=== PATIENT | female | born 1985 | race Caucasian/White ===

== ENCOUNTER 2019-04-17 04:56 | Inpatient (IN) | payer MEDICAID ==
[2019-04-16 11:22] LABS: APPEARANCE,URINE CLEAR; BILIRUBIN,URINE NEGATIVE (NEGATIVE); COLOR,URINE STRAW; GLUCOSE, URINE NEGATIVE (NEGATIVE); KETONES,URINE NEGATIVE (NEGATIVE); LEUKOCYTE ESTERASE,URINE NEGATIVE (NEGATIVE); NITRITE,URINE NEGATIVE (NEGATIVE); PROTEIN,URINE NEGATIVE (NEGATIVE); URINE SPECIFIC GRAVITY 1.002; UROBILINOGEN,URINE NEGATIVE mg/dL (<2.0)
[2019-04-16 11:27] LABS: URINE AMPHETAMINES SCREEN NEGATIVE; URINE BARBITURATES SCREEN NEGATIVE; URINE BENZODIAZEPINES SCREEN NEGATIVE; URINE COCAINE SCREEN NEGATIVE; URINE MARIJUANA (THC) SCREEN NEGATIVE; URINE METHADONE SCREEN NEGATIVE; URINE PHENCYCLIDINE SCREEN NEGATIVE
[2019-04-16 11:46] LABS: ABSOLUTE BASOPHILS # (AUTO) 0.1 10^3/uL (0.0-0.2); ABSOLUTE LYMPHOCYTES (AUTO) 1.7 10^3/uL (0.5-4.7); ABSOLUTE MONOCYTES (AUTO) 0.5 10^3/uL (0.1-1.4); ABSOLUTE NEUT (AUTO) 9.5 10^3/uL (1.7-8.2); BASOPHILS % (AUTO) 0.6 % (0-2); EOSINOPHILS % (AUTO) 0.4 % (0-6); HEMATOCRIT 35.4 % (36.0-47.0); HEMOGLOBIN 11.9 g/dL (12.0-15.5); LYMPHOCYTES % (AUTO) 14.3 % (13-45); MEAN CORPUSCULAR HEMOGLOBIN 30.1 pg (27.0-33.4); MEAN CORPUSCULAR HGB CONC 33.6 g/dL (32.0-36.0); MEAN CORPUSCULAR VOLUME 90 fl (80-97); MONOCYTES % (AUTO) 3.9 % (3-13); PLATELET COUNT 247 10^3/uL (150-450); RED BLOOD COUNT 3.94 10^6/uL (3.72-5.28); RED CELL DISTRIBUTION WIDTH 13.2 % (11.5-14.0); SEGMENTED NEUTROPHILS % (AUTO) 80.8 % (42-78); TOTAL CELLS COUNTED % (AUTO) 100 %; WHITE BLOOD COUNT 11.8 10^3/uL (4.0-10.5)
[2019-04-17] MEDS ORDERED: LIDOCAINE 0.5% INJ-PF (5 MG/ML) 50 ML SDV SUBCUT PRN (05:00)
[2019-04-17] MEDS ORDERED: RINGERS SOLUTION,LACTATED 1,000 ML IV PRN (05:00)
[2019-04-17] MEDS ORDERED: CEFAZOLIN 2 GM/D5W RTU 2 GM/50 ML RTUPB IV PRN (05:08)
[2019-04-17] MEDS: LACTATED RINGERS 1000 ML IV PRN ×2 (06:22→13:58)
[2019-04-17] MEDS ORDERED: CEFAZOLIN 1 GM/D5W RTU 2 GM/100 ML RTUPB IV ONE (06:29)
[2019-04-17] MEDS ORDERED: OXYTOCIN 10 UNIT/ML VIAL ONE (07:26)
[2019-04-17] MEDS ORDERED: OXYTOCIN/NORMAL SALINE 20 UNIT/1,000 ML RTUINJ ONE (07:27)
[2019-04-17] MEDS ORDERED: PROPOFOL INJ 200 MG/20 ML VIAL IV ONE (07:27)
[2019-04-17] MEDS ORDERED: FENTANYL CITRATE INJ/PF 100 MCG/2 ML AMPUL ONE ×2 (07:27→11:03)
[2019-04-17] MEDS ORDERED: MIDAZOLAM 2 MG/2 ML INJ ONE (07:27)
[2019-04-17] MEDS ORDERED: CITRIC ACID/SODIUM CITRATE ORAL SOLN 15 ML UDCUP ONE (07:27)
[2019-04-17] MEDS ORDERED: EPHEDRINE SULFATE INJ 50 MG/1 ML AMPULE ONE (07:27)
[2019-04-17] MEDS ORDERED: DIPHENHYDRAMINE HCL 50 MG/ML VIAL IV PRN (08:38)
[2019-04-17] MEDS ORDERED: MEPERIDINE HCL/PF INJ 25 MG/1 ML DISP.SYRIN IV PRN (08:38)
[2019-04-17] MEDS ORDERED: FENTANYL CITRATE INJ/PF 100 MCG/2 ML AMPUL IV PRN ×3 (08:38)
[2019-04-17] MEDS ORDERED: PROMETHAZINE HCL INJ 25 MG/1 ML VIAL IV PRN ×2 (08:38→10:08)
[2019-04-17] MEDS ORDERED: HYDROMORPHONE HCL INJ/PF 2 MG/ML AMPULE IV PRN (08:40)
[2019-04-17] MEDS ORDERED: ACETAMINOPHEN 325 MG TABLET ONE (09:45)
[2019-04-17] MEDS ORDERED: HYDROMORPHONE HCL INJ/PF 2 MG/ML AMPULE ONE ×2 (09:46→10:30)
[2019-04-17] MEDS ORDERED: NORMAL SALINE 1000 ML 1,000 ML IV PRN (10:08)
[2019-04-17] MEDS ORDERED: OXYTOCIN/NORMAL SALINE 20 UNIT/1,000 ML RTUINJ IV PRN (10:08)
[2019-04-17] MEDS ORDERED: ACETAMINOPHEN 325 MG TABLET PO PRN (10:08)
[2019-04-17] MEDS ORDERED: MEASLES,MUMPS&RUBELLA VACC/PF 0.5 ML VIAL SUBCUT PRN (10:08)
[2019-04-17] MEDS ORDERED: DIPH/PERTUSS(ACELL)/TETANUS VAC/PF 0.5 ML SYR (>=10YO) IM PRN (10:08)
[2019-04-17] MEDS ORDERED: OXYCODONE-ACETAMINOPHEN 5-325 MG TABLET PO PRN (10:08)
[2019-04-17] MEDS ORDERED: ACETAMINOPHEN 1,000 MG/100 ML RTUPB IV PRN (10:08)
--- NOTE | 2019-04-17 10:11 | Brief Operative Note ---
BRIEF OPERATIVE REPORT DATE OF SURGERY: 04/17/19 TIME OF SURGERY: 08:00 PREOPERATIVE DIAGNOSIS: , 39+0ega, H/o section due to pelvic fractures, Undesired Fertility. POSTOPERATIVE DIAGNOSIS: NICHOLAS - delivered SURGEON: TANO VINCENT FINDINGS: normal tubes/ovaries, normal uterus, VFI delivered at 0822, weight 4040g (8#14oz), Apgars 8/8. [place] BTL. IVF 2000ml, UOP 150ml COMPLICATIONS: none ESTIMATED BLOOD LOSS: 1049 TISSUE REMOVED OR ALTERED: Placenta and cord not sent to pathology, Bilateral portions of fallopian tubes sent TECHNICAL PROCEDURE: Repeat Section
[2019-04-17] MEDS ORDERED: METOCLOPRAMIDE HCL INJ/PF 10 MG/2 ML SDV ONE (10:17)
[2019-04-17] MEDS ORDERED: KETOROLAC TROMETHAMINE 60 MG/2 ML SDV ONE (10:17)
[2019-04-17] MEDS ORDERED: PHENYLEPHRINE HCL INJ/PF 10 MG/1 ML SDV ONE (10:17)
[2019-04-17] MEDS ORDERED: ONDANSETRON HCL INJ/PF 4 MG/2 ML SDV ONE (10:17)
[2019-04-17] MEDS ORDERED: ACETAMINOPHEN 1,000 MG/100 ML RTUPB IV ONE (10:31)
[2019-04-17] MEDS: HYDROMORPHONE HCL INJ/PF 2 MG/ML AMPULE IV PRN ×3 (10:35→19:56)
[2019-04-17] MEDS ORDERED: PROMETHAZINE HCL INJ 25 MG/1 ML VIAL ONE (11:33)
[2019-04-17] MEDS: IBUPROFEN 800 MG TABLET PO SCH ×3 (15:06→23:57)
[2019-04-17] MEDS: OXYCODONE-ACETAMINOPHEN 5-325 MG TABLET PO PRN (16:39)
[2019-04-17] MEDS: DOCUSATE SODIUM 100 MG CAPSULE PO SCH (17:20)
--- NOTE | 2019-04-17 22:44 | PDOC DELIVERY SUMMARY ---
Delivery Summary - Maternal Hx : II Hx Para: I Hx # Term Pregnancies: 1 Hx # Pregnancies: 0 Hx Total # of Abortions (Sponateous & Elective): 0 Number of Living Children: 1 SCARLETT: 04/24/19 Gestational Age: 39 Risk Factors: Previous Ruptured Membranes: AROM Time of Rupture: 08:21 Fluids: Clear - Delivery Labor: Not In Labor Presentation: Vertex Heart Rate Monitoring: Done Pre-Operatively Uterine Contraction Monitoring: External Support Person Present: Yes Location: OR : Scheduled, Repeat Placenta: Within Normal Limits Placenta Description: normal Number of Vessels (Cord): 3 Nuchal Cord: No Delivery of Placenta Date: 04/17/19 Delivery of Placenta Time: 08:23 Estimated Blood Loss: 1049 Delivery Quantitative Blood Loss (QBL): 1,049 - Medications Type of Anesthesia:: Spinal - Assess and Care Baby 1 Female Delivery of Date: 04/17/19 Delivery of Infant Time: 08:22 at 1 minute: 8 at 5 minutes: 8 Preprinted Number On Band: [id number] Skin to Skin: No To Nursery At: 08:38 Mode of Transport: Bassinet Infant Delivery Weight: 4,040 Delivery Length: 20.75 in - Delivery Personnel Shopper'S Aide: ALISSA MELLO RN: ELYSIA PINON MD: TANO VINCENT
--- NOTE | 2019-04-17 23:21 | Operative Report ---
Operative Report DATE OF SURGERY: 04/17/19 PREOPERATIVE DIAGNOSIS: , 39+0ega, H/o section due to pelvic fr actures, Undesired Fertility. POSTOPERATIVE DIAGNOSIS: NICHOLAS - delivered OPERATION: Repeat Section, Scar Revision, [facility] SURGEON: TANO VINCENT ANESTHESIA: Spinal TISSUE REMOVED OR ALTERED: Placenta and cord not sent to pathology, Bilateral portions of fallopian tubes sent COMPLICATIONS: None ESTIMATED BLOOD LOSS: 1049 INTRAOPERATIVE FINDINGS: normal tubes/ovaries, normal uterus, VFI delivered at 0822, weight 4040g (8#14oz), Apgars 8/8. [facility]. IVF 2000ml, UOP 150ml PROCEDURE: Anesthesia provider: [Michel GONZALEZ, Nguyễn Duran CRNA] Urine output: [150ml] IV fluids: [2000ml] Indications: [33yo at 39+0ega presents for Repeat Section and Bilateral Tubal Ligation. She has a history of section due to history of pelvic fractures and desires repeat section. GBS negative. She is 100% sure that she has completed childbearing. Title XX signed on 03/02/2019. Consents reviewed and signed to reflect section and Bilateral Tubal Ligation. The risks, benefits, alternatives were reviewed and she desires to proceed with planned procedure. ] Procedure: The patient was taken to the operating room where spinal anesthesia was obtained and found to be adequate. She was then prepped and draped in the normal sterile fashion and placed in the dorsal supine position with a leftward tilt. The prior Pfannenstiel skin incision was removed and carried through to the underlying layers of the fascia with the scalpel. The fascia was incised in the midline and the incision extended laterally with the Marino scissors. The superior aspect of the fascial incision was then grasped with Eric clamps elevated and the underlying rectus muscles dissected off [bluntly]. Attention was then turned to the inferior aspect of the fascial incision which in a similar fashion was grasped, tented up with Eric clamps, and the rectus muscles dissected off [bluntly]. The rectus muscles were then in the midline and the peritoneum at the amount identified and entered [bluntly]. The peritoneal incision was then extended superiorly and inferiorly with good visualization of the bladder. The bladder blade was inserted and the vesicouterine peritoneum identified grasped with Jordanian pickups and entered sharply with the Metzenbaum scissors. This incision was then extended laterally with the Metzenbaum scissors and a bladder flap created digitally. The bladder blade was then reinserted and the lower uterine segment incised in a transverse fashion with the scalpel. The uterine incision was then extended bluntly. The bladder blade was removed and the 's head was delivered from cephalic presentation atraumatically. The nose and mouth were suctioned and the cord doubly clamped and cut. And the was handed off to waiting pediatricians. The placenta was then delivered spontaneously and the uterus exteriorized and cleared of all clots and debris. The uterine incision was then repaired with 1- 0 Vicryl in a running locked fashion. A second layer of the same suture was used to obtain hemostasis via imbrication of the initial layer. The bladder flap was then repaired with 3-0 chromic in a running fashion. A oxana was placed in the mid portion of the fallopian tube and ties were placed proximally and distally and the intervening portion of the fallopian tube on the right. Th is procedure was repeated on the patients left and this completed [place] BTL in the usual fashion. The uterus was returned to the patient's abdomen and Surgicel was placed for hemostasis and Interceed was placed overlying the uterine incision to prevent adhesions. The gutters were cleared of all clots and debris. All operative sites were noted to be hemostatic. The fascia was reapproximated with 0 Vicryl in a running fashion from each lateral edge to the midline. The skin was closed with 3-0 Monocryl in a running subcuticular fashion with overlying Dermabond for additional dressing as well as wound closure. The patient tolerated the procedure well. Sponge lap needle and instrument counts are correct times 2. 2 g of Ancef were given prior to skin incision. The patient was taken to the recovery area awake and in stable condition.
[2019-04-18] MEDS: OXYCODONE-ACETAMINOPHEN 5-325 MG TABLET PO PRN ×5 (00:03→20:08)
[2019-04-18] MEDS: SIMETHICONE 80 MG TAB.CHEW PO PRN ×2 (00:06→09:52)
[2019-04-18] MEDS: IBUPROFEN 800 MG TABLET PO SCH ×4 (05:54→23:09)
[2019-04-18 07:22] LABS: HEMATOCRIT 26.7 % (36.0-47.0); MEAN CORPUSCULAR HEMOGLOBIN 30.2 pg (27.0-33.4); MEAN CORPUSCULAR HGB CONC 34.1 g/dL (32.0-36.0); MEAN CORPUSCULAR VOLUME 89 fl (80-97); PLATELET COUNT 233 10^3/uL (150-450); RED BLOOD COUNT 3.01 10^6/uL (3.72-5.28); RED CELL DISTRIBUTION WIDTH 13.1 % (11.5-14.0); WHITE BLOOD COUNT 12.6 10^3/uL (4.0-10.5)
[2019-04-18 07:23] LABS: HEMOGLOBIN 9.1 g/dL (12.0-15.5)
--- NOTE | 2019-04-18 09:59 | PDOC PROGRESS REPORT ---
Subjective-OB Progress Note for:: 04/18/19 Subjective: Pt sitting up in bed, has no complaints. She is ambulatory, reports normal bleeding, reg diet and voiding without difficulty. Family at bedside. Physical Exam (OB) Vital Signs: Temp Pulse Resp BP Pulse Ox 98.3 F 66 12 93/46 L 96 04/18/19 04:39 04/18/19 04:39 04/18/19 04:39 04/18/19 04:39 04/18/19 04:39 Intake & Output 04/17/19 04/18/19 04/19/19 06:59 06:59 06:59 Intake Total 2550 Output Total 4100 Balance -1550 Weight 81.65 kg - PIH/Pre-Eclampsia Headache: Absent Epigastric Pain: No Visual Changes: No - Dressing Removed: No Incision: Open, Well Approximated Closure Type: Surgical Glue - Lochia Lochia Amount: Scant < 10 ml Lochia Color: Rubra/Red - Abdomen Description: Tender, Soft, Round Hernia Present: No Fundal Description: Firm, Midline Fundal Height: u/u - u/2 Objective-Diagnostic Laboratory: 04/18/19 06:42 04/18/19 06:42 WBC 12.6 H RBC 3.01 L Hgb 9.1 L D Hct 26.7 L MCV 89 MCH 30.2 MCHC 34.1 RDW 13.1 Plt Count 233 Assessment and Plan(PN) - Assessment and Plan (1) Encounter for sterilization Is this a current diagnosis for this admission?: Yes (2) History of delivery Is this a current diagnosis for this admission?: Yes (3) S/P repeat low transverse Is this a current diagnosis for this admission?: Yes - Time Spent with Patient Time with patient: Less than 15 minutes Medications reviewed and adjusted accordingly: Yes - Disposition Anticipated Discharge: Home Within: within 24 hours
[2019-04-18] MEDS: PRENATAL VITAMIN W DHA CAPSULE PO SCH (10:25)
[2019-04-18] MEDS: DOCUSATE SODIUM 100 MG CAPSULE PO SCH ×2 (10:25→18:03)
[2019-04-19] MEDS: OXYCODONE-ACETAMINOPHEN 5-325 MG TABLET PO PRN (06:14)
[2019-04-19] MEDS: IBUPROFEN 800 MG TABLET PO SCH (06:15)
[2019-04-19 09:40] VITALS: BP 103/54
[2019-04-19] MEDS: PRENATAL VITAMIN W DHA CAPSULE PO SCH (10:18)
[2019-04-19] MEDS: DOCUSATE SODIUM 100 MG CAPSULE PO SCH (10:18)
--- NOTE | 2019-04-19 10:46 | PDOC DISCHARGE SUMMARY ---
Final Diagnosis Discharge Date: 04/19/19 - Final Diagnosis (1) Encounter for sterilization Is this a current diagnosis for this admission?: Yes (2) History of delivery Is this a current diagnosis for this admission?: Yes (3) S/P repeat low transverse Is this a current diagnosis for this admission?: Yes Discharge Data - Discharge Medication Prescriptions: Oxycodone HCl/Acetaminophen [Percocet 5-325 mg Tablet] 1 tab PO Q4HP PRN #30 tablet PRN Reason: Ibuprofen [Motrin 800 mg Tablet] 800 mg PO Q8HP PRN #60 tablet PRN Reason: Home Medications: Ferrous Sulfate, Dried [Iron] 75 mg PO DAILY 04/16/19 Pnv No.95/Ferrous Fum/Folic AC [ Formula Tablet] 1 each PO 04/16/19 Ibuprofen [Motrin 800 mg Tablet] 800 mg PO Q8HP PRN #60 tablet 04/19/19 Oxycodone HCl/Acetaminophen [Percocet 5-325 mg Tablet] 1 tab PO Q4HP PRN #30 tablet 04/19/19 Reason(s) for Admission: Ceasarean Section-Repeat Procedures: None Intrapartum Procedure(s): : Low Cervical, Transverse - Diagnosis Test Laboratory: Temp Pulse Resp BP Pulse Ox 97.6 F 76 14 103/54 L 97 04/19/19 07:00 04/19/19 07:00 04/19/19 07:00 04/19/19 07:00 04/19/19 07:00 04/16/19 04/16/19 04/18/19 10:25 10:35 06:42 RBC 3.94 3.01 L Hgb 11.9 L 9.1 L D Hct 35.4 L 26.7 L Urine Opiates Screen NEGATIVE - Discharge information/Instructions Discharge Activity: Balance Activity w/Rest, No Lifting Over 10 Pounds, No Lifting/Push/Pulling, Pelvic Rest, No tub bath Discharge Diet: Regular Disposition: HOME, SELF-CARE Follow up with: [facility] in: 4, Weeks
== END 2019-04-19 11:50 | disposition home or self-care (01) | DRG 785 ==
LOC: 2S 04:56
PROVIDERS: ADMIT Student in an Organized Health Care Education/Training Program; ATTEND Student in an Organized Health Care Education/Training Program
PROC: 0U570ZZ Destruction of Bilateral Fallopian Tubes, Open Approach (ICD-10-PCS; 2019-04-17)
PROC: 10D00Z1 Extraction of Products of Conception, Low, Open Approach (ICD-10-PCS; principal; 2019-04-17 07:45)
DX: O34.211 Maternal care for low transverse scar from previous cesarean delivery (principal); Z30.2 Encounter for sterilization; Z3A.39 39 weeks gestation of pregnancy; Z37.0 Single live birth; Z87.891 Personal history of nicotine dependence; Z88.6 Allergy status to analgesic agent
CPT/HCPCS: 1961; 36415; 59025; 80307; 81001; 85025; 85027; 86850; 86900; 86901; 88302; 94799; C1765; J0131; J1170; J1885; J2250; J2370; J2405; J2550; J2590; J2704; J2765; J3010; J3490; J7120